=== PATIENT | male | born 1970 | race Caucasian/White ===

== ENCOUNTER 2020-03-28 07:34 | Emergency (ER) | payer OTHER ==
[~2020-03-28] VITALS: Ht 185.4 cm; Wt 76.9 kg
[2020-03-28 07:51] LABS: URINE BILIRUBIN NEGATIVE (Negative); URINE BLOOD 2+ (Negative); URINE CLARITY CLEAR; URINE COLOR YELLOW; URINE GLUCOSE-RANDOM* NEGATIVE (Negative); URINE KETONES NEGATIVE (Negative); URINE LEUKOCYTES-REFLEX NEGATIVE (Negative); URINE NITRITE-REFLEX NEGATIVE (Negative); URINE PROTEIN (DIPSTICK) 1+ (Negative); URINE SPECIFIC GRAVITY >= 1.030 (1.005-1.035); URINE UROBILINOGEN 0.2 E.U./dl (0.2-1.0)
[2020-03-28] MEDS ORDERED: TEGRETOL200 MG PO (08:00)
[2020-03-28 08:04] LABS: EOSINOPHILS 2.9 % (0.0-3.0); HEMATOCRIT 47.5 % (42.0-52.0); HEMOGLOBIN 16.3 gm/dL (14.0-18.0); LYMPHOCYTES 39.6 % (24.0-44.0); MCH 31.5 pg (26.0-34.0); MCHC 34.2 g/dL (28.0-37.0); MCV 91.9 fL (80.0-100.0); MONOCYTES 6.5 % (1.0-8.0); PLATELET COUNT 171 thou/uL (150-400); RBC 5.17 mil/uL (4.50-6.00); RDW 13.4 % (10.5-14.5); WBC 5.9 thou/uL (4.0-11.0)
[2020-03-28 08:09] LABS: SQUAMOUS 0-3 Few /LPF (0-3)
--- NOTE | 2020-03-28 08:09 | EKG ---
[facility] [employer] 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 Executive: TERRELL DIOR : 1970 Requested By: Elder Hobson Order Number: [id number] MD: Carl Escobar Measurements Intervals [place] Rate: 66 P: 47 MD: 115 QRS: 36 QRSD: 96 T: 44 QT: 429 QTc: 450 Interpretive Statements Sinus rhythm Borderline short MD interval RSR' in V1 or V2, probably normal variant Baseline wander in lead(s) V2 No previous ECG available for comparison Electronically Signed On 03-28-2020 8:09:15 [employer] by Carl Escobar [email or web address] <ELECTRONICALLY SIGNED> By: Carl Escobar MD, FAC 03/28/20 0809 [id number] 0749 Carl Escobar MD, FACC /EPI
[2020-03-28 08:10] LABS: BACTERIA-REFLEX None Seen /HPF (None Seen); CASTS None Seen /LPF (None Seen); CRYSTALS None Seen /LPF (None Seen); MUCUS >6 Heavy strn/LPF (None Seen); URINE RBC 0-2 Rare /HPF (0-2); URINE WBC-REFLEX 0-5 Rare /HPF (0-5)
[2020-03-28 08:22] LABS: ALBUMIN 3.8 g/dL (3.4-5.0); CREATININE 1.4 mg/dL (0.7-1.3); TOTAL BILIRUBIN 0.4 mg/dL (0.2-1.0)
[2020-03-28 08:27] LABS: CALCIUM 9.2 mg/dL (8.5-10.1)
[2020-03-28 10:00] VITALS: BP 130/91
== END 2020-03-28 10:00 | disposition home or self-care (01) ==
LOC: ER 07:34
PROVIDERS: Emergency Medicine
DX: K80.20 Calculus of gallbladder without cholecystitis without obstruction (principal); I10 Essential (primary) hypertension; Z79.899 Other long term (current) drug therapy